=== PATIENT | female | born 1995 | race Caucasian/White ===

== ENCOUNTER 2021-09-03 22:38 | Emergency (ER) | payer MEDICAID ==
[~2021-09-03] VITALS: Ht 162.6 cm; Wt 77.1 kg
[2021-09-03 23:08] VITALS: BP 140/90
--- NOTE | 2021-09-03 23:11 | NUR ---
to lobby a/w bed ambulatory
[2021-09-04] MEDS ORDERED: AMOX-1000 PO (00:13)
[2021-09-04] MEDS ORDERED: COROTSOL OT (00:13)
--- NOTE | 2021-09-04 00:14 | NUR ---
SEEN AND EXAMINED BY LUNA
[2021-09-04 00:15] VITALS: BP 140/90
== END 2021-09-04 00:15 | disposition home or self-care (01) ==
LOC: MED 22:38
DX: H66.91 Otitis media, unspecified, right ear (principal); Z79.899 Other long term (current) drug therapy
CPT/HCPCS: 99283